=== PATIENT | male | born 1970 ===

== ENCOUNTER 2021-07-13 06:04 | Day surgery (SDC) | payer OTHER ==
[~2021-07-13 06:04] MED LIST: Lactated Ringers 1,000 ML IV SCH
[2021-07-13] MEDS ORDERED: Midazolam 1 MG/ML 2 ML SDV ONE (07:02)
[2021-07-13] MEDS ORDERED: Propofol 200 MG/20 ML SDV ONE (07:02)
[2021-07-13] MEDS ORDERED: Ketamine 500 mg/10 ML MDV ONE (07:02)
[2021-07-13] MEDS ORDERED: fentaNYL 250 MCG/5 ML SDV ONE ×2 (07:02→08:59)
[2021-07-13] MEDS ORDERED: Bupivacaine 0.5% 10 ML SDV ONE (07:15)
[2021-07-13] MEDS ORDERED: Bupivacaine Liposome 1.3% 20 ML SDV ONE (07:27)
[2021-07-13] MEDS ORDERED: HYDROmorphone 1 MG/ML Syringe IVPUSH PRN (07:38)
[2021-07-13] MEDS ORDERED: fentaNYL 100 MCG/2 ML SDV IVPUSH PRN (07:38)
[2021-07-13] MEDS ORDERED: Albuterol 0.083% 2.5 MG/3 ML Neb Soln NEB PRN (07:38)
[2021-07-13] MEDS ORDERED: Ondansetron 4 MG/2 ML SDV IVPUSH PRN (07:38)
[2021-07-13] MEDS ORDERED: Metoclopramide 10 MG/2 ML SDV IVPUSH PRN (07:38)
[2021-07-13] MEDS ORDERED: Naloxone 0.4 MG/ML SDV IVPUSH PRN (07:38)
--- NOTE | 2021-07-13 07:42 | PCM.PREANE ---
Preanesthetic Assessment - Procedure Proposed Procedure: Rotator cuff repair, poss biceps tenodesis - Anesthesia/Transfusion/Family Hx Anesthesia History: Prior Anesthesia Without Reaction Family History of Anesthesia Reaction: No Transfusion History: No Prior Transfusion(s) - Review of Systems General: No Symptoms Pulmonary: No Symptoms (ariel mays x 2 yrs) Cardiovascular: No Symptoms (HTN, HLD) Gastrointestinal: No Symptoms Neurological: No Symptoms Other: Reports: None (h/o kidney stones) - Physical Assessment NPO Status Date: 07/12/21 NPO Status Time: 11:59 Vital Signs: Last Vital Signs Temp 99.0 F 07/13/21 06:35 Pulse 80 07/13/21 06:35 Resp 15 07/13/21 06:35 BP 136/96 H 07/13/21 06:35 Pulse Ox 96 07/13/21 06:35 Height: 5 ft 9 in Weight: 117.934 kg ASA Class: 2 Mental Status: Alert & Oriented x3 Airway Class: Mallampati = 3 Dentition: Reports: Normal Dentition Thyro-Mental Finger Breadths: 3 Mouth Opening Finger Breadths: 3 ROM/Head Extension: Full Lungs: Clear to Auscultation, Normal Respiratory Effort Cardiovascular: Regular Rate, Regular Rhythm - Allergies Allergies/Adverse Reactions: Allergies Allergy/AdvReac Type Severity Reaction Status Date / Time No Known Allergies Allergy Verified 07/07/21 08:33 - Acknowledgements Anesthesia Type Planned: General Anesthesia, Regional Block Pt an Appropriate Candidate for the Planned Anesthesia: Yes Alternatives and Risks of Anesthesia Discussed w Pt/Guardian: Yes Pt/Guardian Understands and Agrees with Anesthesia Plan: Yes PreAnesthesia Questionnaire HEENT History: Reports: Other (See Below) Other HEENT History: wears glasses Cardiovascular History: Reports: High Cholesterol, Hypertension Respiratory History: Reports: None Gastrointestinal History: Reports: None Genitourinary History: Reports: Renal Calculus Musculoskeletal History: Reports: Other (See Below) Other Musculoskeletal History: herniated lumbar discs Neurological History: Reports: None Psychiatric History: Reports: None Endocrine/Metabolic History: Reports: Diabetes, Type II, Obesity/BMI 30+ Other Endocrine/Metabolic History: diet controlled Hematologic History: Reports: None Immunologic History: Reports: None Oncologic (Cancer) History: Reports: None Dermatologic History: Reports: None - Past Surgical History Head Surgeries/Procedures: Reports: None HEENT Surgical History: Reports: None Cardiovascular Surgical History: Reports: None Respiratory Surgical History: Reports: None GI Surgical History: Reports: Appendectomy Male Surgical History: Reports: Vasectomy Neurological Surgical History: Reports: None Musculoskeletal Surgical History: Reports: Arthroscopic Knee Other Musculoskeletal Surgeries/Procedures:: left knee arthroscopy x3 Oncologic Surgical History: Reports: None Dermatological Surgical History: Reports: None - SUBSTANCE USE Tobacco Use Status *Q: Former Tobacco User Tobacco Use Within Last Twelve Months: No - HOME MEDS Home Medications: Home Meds Diclofenac Sodium 50 mg PO BID PRN 07/07/21 [History] Kratom 1 tab PO ASDIRECTED PRN 07/07/21 [History] Losartan Potassium 100 mg PO DAILY 07/07/21 [History] amLODIPine Besylate [Amlodipine Besylate] 5 mg PO DAILY 07/07/21 [History] atorvaSTATin [Lipitor] 10 mg PO DAILY 07/07/21 [History] hydroCHLOROthiazide [Hydrochlorothiazide] 12.5 mg PO DAILY 07/07/21 [History] - CURRENT (IN HOUSE) MEDS Current Meds: Current Medications Lactated Ringer's (Ringers, Lactated) 1,000 mls @ 100 mls/hr IV ASDIRECTED BANG Cefazolin Sodium/Dextrose 2 gm (/ Premix) 50 mls @ 100 mls/hr IV ONCALL BANG Discontinued Medications Bupivacaine HCl (Bupivacaine 0.5% 10 Ml Sdv) Confirm Administered Dose 10 ml .ROUTE .STK-MED ONE Stop: 07/13/21 07:16 Bupivacaine Liposome (Bupivacaine Liposome 1.3% 20 Ml Sdv) 20 ml .XX .STK-MED ONE Stop: 07/13/21 07:28 Fentanyl (Fentanyl 250 Mcg/5 Ml Sdv) Confirm Administered Dose 250 mcg .ROUTE .STK-MED ONE Stop: 07/13/21 07:03 Ketamine HCl (Ketamine 500 Mg/10 Ml Mdv) Confirm Administered Dose 500 mg .ROUTE .STK-MED ONE Stop: 07/13/21 07:03 Midazolam HCl (Midazolam 1 Mg/Ml 2 Ml Sdv) Confirm Administered Dose 2 mg .ROUTE .STK-MED ONE Stop: 07/13/21 07:03 Propofol (Propofol 200 Mg/20 Ml Sdv) Confirm Administered Dose 400 mg .ROUTE .STK-MED ONE Stop: 07/13/21 07:03
[2021-07-13] MEDS ORDERED: Bupivacaine 25%/EPINEPHrine/PF 30 ML ONE (07:58)
[2021-07-13] MEDS ORDERED: ceFAZolin 2 GM in Premix Bag 1 BAG IV SCH (08:00)
[2021-07-13] MEDS ORDERED: Dexamethasone 4 MG/ML 5 ML MDV ONE (10:21)
[2021-07-13] MEDS ORDERED: ePHEDrine 50 MG/ML SDV ONE (10:21)
[2021-07-13] MEDS ORDERED: Glycopyrrolate 0.2 MG/ML SDV ONE (10:21)
[2021-07-13] MEDS ORDERED: Rocuronium Bromide 50 MG/5 ML Syringe ONE (10:21)
[2021-07-13] MEDS ORDERED: Sugammadex Sodium 200 MG/2 ML VIAL ONE (10:21)
[2021-07-13] MEDS ORDERED: Phenylephrine 1% 10 MG/ML SDV ONE (10:21)
[2021-07-13] MEDS ORDERED: ceFAZolin 1 GM Vial ONE (10:21)
[2021-07-13] MEDS ORDERED: Ketorolac 30 MG/ML SDV ONE (10:21)
[2021-07-13] MEDS ORDERED: Ondansetron 4 MG/2 ML SDV ONE (10:21)
--- NOTE | 2021-07-13 11:05 | PCM.POSTAN ---
POST ANESTHESIA ASSESSMENT - MENTAL STATUS Mental Status: Alert, Oriented - VITAL SIGNS Vital Signs: Last Vital Signs Temp 97.3 F 07/13/21 10:47 Pulse 93 07/13/21 11:03 Resp 14 07/13/21 11:03 BP 127/85 07/13/21 11:03 Pulse Ox 98 07/13/21 11:03 - RESPIRATORY Respiratory Status: Respiratory Rate WNL, Airway Patent, O2 Saturation Stable - CARDIOVASCULAR CV Status: Pulse Rate WNL, Blood Pressure Stable - GASTROINTESTINAL GI Status: No Symptoms - PAIN Pain Score: 0 - POST OP HYDRATION Hydration Status: Adequate & Stable
--- NOTE | 2021-07-13 11:21 | PCM48HPAN ---
Post Anesthesia Note - EVALUATION WITHIN 48HRS OF ANESTHETIC Vital Signs in Normal Range: Yes Patient Participated in Evaluation: Yes Respiratory Function Stable: Yes Airway Patent: Yes Cardiovascular Function Stable: Yes Hydration Status Stable: Yes Pain Control Satisfactory: Yes Nausea and Vomiting Control Satisfactory: Yes Mental Status Recovered: Yes Vital Signs: Last Vital Signs Temp 97.3 F 07/13/21 10:47 Pulse 91 07/13/21 11:18 Resp 9 L 07/13/21 11:18 BP 120/69 07/13/21 11:18 Pulse Ox 95 07/13/21 11:18 - COMMENTS/OBSERVATIONS Free Text/Narrative:: Pt doing well post-op. VSS. No apparent anesthetic complications. Dr. Prakash Vega
[2021-07-13] MEDS ORDERED: Acetaminophen/oxyCODONE 325-5 MG Tab ONE (12:49)
--- NOTE | 2021-07-13 14:01 | OR ---
SURGEON: Shelton Joseph MD DATE OF PROCEDURE: 07/13/2021 PREOPERATIVE DIAGNOSIS: Right shoulder rotator cuff tear. POSTOPERATIVE DIAGNOSES: 1. Supraspinatus tear, right shoulder. 2. Infraspinatus, right shoulder. 3. Partial thickness, biceps tendon tear, less than 20%. 4. Superior border subscapularis tear. PROCEDURE PERFORMED: 1. Arthroscopic repair of supraspinatus. 2. Arthroscopic repair of infraspinatus. 3. Debridement of biceps tendon tear, partial. 4. Debridement of partial-thickness subscapularis tear. 5. Subacromial decompression. PRIMARY SURGEON: Shelton Joseph MD HATCH BOSS: Jhoana. DESCRIPTION OF PROCEDURE: After obtaining informed consent, he was taken to the operating room, placed in supine position. After adequate induction of general anesthesia, he was prepped and draped in sterile fashion in beach chair position. A standard anterior and posterior portals were made. The arthroscope was introduced into the shoulder. The articular surfaces were intact. There was fraying of the labrum, which required only minor debridement. There was a partial-thickness tear of the biceps measuring about 10% to 15% of the thickness of the tendon, it was debrided using a shaver. The biceps ekaterina was intact. The top border of the subscapularis showed some mild fraying which was debrided using a shaver, no repair was needed. There was a complete tear of the supraspinatus extending into the infraspinatus with retraction of the mid glenohumeral joint. The axillary pouch was free of loose body. The arthroscope was introduced over the posterior margin of the cuff. The bursa was completely resected. The coracoacromial ligament was released anteriorly and a subacromial decompression was performed using a shaver. The rotator cuff was examined from the top. There was tear of the supraspinatus with mild delamination of the infraspinatus. The greater tuberosity was cleared of soft tissue. Two arthroscopic anchors were placed at the articular margin and the sutures were passed in a mattress fashion and tied. The tags were then crossed and passed through the Swive[employer] anchors laterally that gave a double row repair. The tendon was repaired anatomically, a stable repair was obtained. The portals were closed with 4-0 Vicryl suture and infiltrated with 0.25% Marcaine with epinephrine. He was sent to recovery room stable. LUISA CRUZ /[id number]
[2021-07-13] MEDS ORDERED: Acetaminophen/oxyCODONE 325-5 MG Tab PO PRN (14:18)
== END 2021-07-13 13:08 | disposition home or self-care (01) ==
LOC: MW.SDS 06:04
PROVIDERS: ATTEND Orthopaedic Surgery
DX: M75.121 Complete rotator cuff tear or rupture of right shoulder, not specified as traumatic (principal); S46.211A Strain of muscle, fascia and tendon of other parts of biceps, right arm, initial encounter; I10 Essential (primary) hypertension; E66.9 Obesity, unspecified; E78.00 Pure hypercholesterolemia, unspecified; E11.9 Type 2 diabetes mellitus without complications; Z98.890 Other specified postprocedural states; Z90.49 Acquired absence of other specified parts of digestive tract; Z87.891 Personal history of nicotine dependence
CPT/HCPCS: 29826; 29827; A9270; J0330; J0690; J1100; J1885; J2250; J2370; J2405; J2704; J3010; J3490; J7120; 01630